=== PATIENT | female | born 1950 | race African-American/Black ===

== ENCOUNTER 2022-09-07 17:43 | Emergency (ER) | payer MEDICARE, MEDICAID ==
[~2022-09-07] VITALS: Ht 152.4 cm; Wt 64.0 kg
[2022-09-07] MEDS ORDERED: FUROSEMIDE 20MG/2ML VIAL IVP ONE (19:15)
[2022-09-07 20:04] LABS: BASOPHILS % 0.6 % (0.0-2.0); HEMATOCRIT. 25.1 % (36.0-48.0); HEMOGLOBIN. 8.1 g/dL (12.0-16.0); LYMPHOCYTES % 27.8 % (20.0-50.0); MEAN CORPUSCULAR VOLUME 87.1 fL (81.0-99.0); MEAN PLATELET VOLUME 7.1 fl (7.4-10.4); NEUTROPHILS % 56.6 % (40.0-76.0); PLATELET 172 x1000/uL (130-400); RED BLOOD CELL COUNT 2.88 mill/uL (4.2-5.4); RED CELL DISTRIBUTION WIDTH 13.6 % (11.6-14.6)
[2022-09-07 20:06] LABS: CHLORIDE 113 mEq/L (98-107)
[2022-09-07] MEDS ORDERED: FUROSEMIDE 20MG/2ML VIAL IVP NR (22:45)
[2022-09-07 23:45] VITALS: BP 145/85
[2022-09-08] MEDS ORDERED: FUROSEMIDE 20MG TABLET PO NR
[2022-09-08] MEDS ORDERED: SODIUM CHLORIDE 0.9% 1,000 ML IV ONE (00:45)
[2022-09-08] MEDS ORDERED: SODIUM POLYSTYRENE SULFONATE 15 G/60 ML BOT PO ONE (00:45)
[2022-09-08] MEDS ORDERED: DEXTROSE 50% WATER 50ML SYRINGE IV ONE (00:45)
[2022-09-08] MEDS ORDERED: INSULIN REGULAR (HUMULIN R) 300UNITS/3ML VIAL IV ONE (00:45)
[2022-09-08] MEDS ORDERED: SODIUM BICARBONATE 8.4% 1 MEQ/ML 50ML SYR IV ONE (00:45)
== END 2022-09-08 00:11 ==
LOC: ER 18:00
DX: R10.9 Unspecified abdominal pain (principal); E87.5 Hyperkalemia; E11.9 Type 2 diabetes mellitus without complications; I10 Essential (primary) hypertension; Z86.73 Personal history of transient ischemic attack (TIA), and cerebral infarction without residual deficits
CPT/HCPCS: 36415; 80053; 83690; 85025; 93005; 99284; J1940

== ENCOUNTER 2024-04-08 13:14 | Inpatient (IN) | payer MEDICARE, MEDICAID ==
[~2024-04-08] VITALS: Ht 154.9 cm; Wt 61.7 kg
[~2024-04-08 13:14] MED LIST: AMLO10TA80 PO; ASPI-1497 PO; ATOR20TA65 PO; CITR473S PO; DEXT15DR5 EACHEYE; DOCU250C14 PO; FERR325T6 PO; FOLI-43 PO; FOLI0.8T23 MT; GABA300C PO; LABE100T9 PO; SEVE800T25 PO; SODI15OR5 MT; SODI454P4 PO; TRAM50TA3 MT; XALAO EACHEYE
[2024-04-08 14:23] LABS: CHLORIDE 110 mEq/L (98-107); SODIUM 139 mEq/L (136-145)
[2024-04-08 14:24] LABS: CALCIUM 8.9 mg/dL (8.7-10.4); CARBON DIOXIDE 20 mEq/L (21-32)
[2024-04-08 14:26] LABS: PROTHROMBIN TIME 10.9 sec (9.6-11.0)
[2024-04-08 14:29] LABS: GLUCOSE 84 mg/dL (70-105)
[2024-04-08 14:30] LABS: TROPONIN I HIGH SENSITIVITY 18 ng/L (3.0-34)
[2024-04-08 14:34] LABS: BASOPHILS % 0.7 % (0.0-2.0); EOSINOPHILS % 2.6 % (0.0-5.0); HEMATOCRIT. 26.3 % (36.0-48.0); HEMOGLOBIN. 8.4 g/dL (12.0-16.0); LYMPHOCYTES % 28.6 % (20.0-50.0); MEAN CORPUSCULAR HEMOGLOBIN 28.6 pg (28.0-32.0); MEAN CORPUSCULAR HGB CONC 31.9 g/dL (31.0-37.0); MEAN CORPUSCULAR VOLUME 89.9 fL (81.0-99.0); MEAN PLATELET VOLUME 7.8 fl (7.4-10.4); MONOCYTES % 6.6 % (2.0-8.0); NEUTROPHILS % 61.5 % (40.0-76.0); PLATELET 216 x1000/uL (130-400); RED BLOOD CELL COUNT 2.92 mill/uL (4.2-5.4); RED CELL DISTRIBUTION WIDTH 14.6 % (11.6-14.6); WHITE BLOOD COUNT 6.8 x1000/uL (4.5-11.0)
[2024-04-08 14:36] LABS: POTASSIUM 7.8 mEq/L (3.5-5.1)
[2024-04-08 14:38] LABS: UREA NITROGEN BLOOD 112 mg/dL (9-23)
[2024-04-08 14:39] LABS: CREATININE 9.2 mg/dL (0.6-1.0)
[2024-04-08] MEDS ORDERED: INSULIN REGULAR (HUMULIN R) 1000UNITS/10ML VIAL IV ONE (14:45)
[2024-04-08] MEDS ORDERED: CALCIUM GLUCONATE 1GM PREMIX 50 ML IV ONE (14:45)
[2024-04-08] MEDS ORDERED: DEXTROSE 50% WATER 50ML SYRINGE IV PRN (15:00)
[2024-04-08] MEDS: FUROSEMIDE 40MG/4ML VIAL IVP ONE (15:21)
[2024-04-08] MEDS: CALCIUM GLUCONATE 3,000 MG in DEXT 5% WATER 70 ML IV NR (15:21)
[2024-04-08] MEDS: MANNITOL 12.5G (25%) VIAL 50ML IV NR (15:30)
[2024-04-08] MEDS ORDERED: DOCUSATE SODIUM 250MG CAPSULE PO PRN (15:45)
[2024-04-08] MEDS: INSULIN REGULAR (HUMULIN R) 1000UNITS/10ML VIAL IV ONE (16:00)
[2024-04-08] MEDS: DEXTROSE 50% WATER 50ML SYRINGE IV ONE (16:11)
[2024-04-08] MEDS: SODIUM BICARBONATE 8.4% 50MEQ/50ML SYR IV ONE (16:11)
[2024-04-08] MEDS: SODIUM ZIRCONIUM CYCLOSILICATE 10GM/PACKET PO ONE (16:15)
[2024-04-08 16:18] VITALS: PULSE 68; RESP 15; O2SAT 92
[2024-04-08] MEDS: ALBUTEROL (0.083%) 2.5MG/3ML NEB HHN ONE (16:18)
[2024-04-08 19:43] LABS: POTASSIUM 7.3 mEq/L (3.5-5.1)
[2024-04-08 20:12] LABS: HEPATITIS B SURFACE ANTIGEN NEGATIVE (Negative)
[2024-04-08 20:32] LABS: HEPATITIS A AB IGM NEGATIVE (Negative)
[2024-04-08 20:33] LABS: HEPATITIS B CORE AB IGM NEGATIVE (Negative); HEPATITIS C AB NON REACTIVE (Neg) (Negative)
[2024-04-08] MEDS: INSULIN REGULAR (HUMULIN R) 1000UNITS/10ML VIAL IV NR (21:29)
[2024-04-08] MEDS: SODIUM BICARBONATE 8.4% 50MEQ/50ML SYR IV NR (21:32)
[2024-04-08] MEDS: DEXTROSE 50% WATER 50ML SYRINGE IV NR (21:33)
[2024-04-08 21:52] VITALS: PULSE 74; RESP 10; O2SAT 99
[2024-04-08] MEDS: ALBUTEROL (0.5%) 2.5MG/0.5ML NEB HHN NR (21:52)
[2024-04-08] MEDS: ATORVASTATIN CALCIUM 20MG TABLET PO SCH (22:36)
[2024-04-08] MEDS: LATANOPROST 0.005% OPHTH DROPS 2.5ML EACHEYE SCH (22:48)
[2024-04-08 23:45] VITALS: BP 162/129; PULSE 79; RESP 14; TEMP 36.3624
[2024-04-08 23:58] VITALS: BP 162/129; PULSE 78; RESP 17; TEMP 36.33624; O2SAT 98
[2024-04-09] VITALS (23 sets, daily range): BP systolic 121–176; BP diastolic 50–101; PULSE 69–86; RESP 10–21; TEMP 36.55848–37.11408; O2SAT 95–99
[2024-04-09 00:49] LABS: CALCIUM 9.1 mg/dL (8.7-10.4)
[2024-04-09 01:14] LABS: POTASSIUM 6.7 mEq/L (3.5-5.1)
[2024-04-09] MEDS: ALBUTEROL (0.083%) 2.5MG/3ML NEB HHN NR ×2 (01:30→06:45)
[2024-04-09] MEDS: SODIUM BICARBONATE 8.4% 50MEQ/50ML SYR IV NR ×3 (02:23→12:30)
[2024-04-09] MEDS: INSULIN REGULAR (HUMULIN R) 1000UNITS/10ML VIAL IV NR ×4 (02:26→16:39)
[2024-04-09] MEDS: DEXTROSE 50% WATER 50ML SYRINGE IV NR ×4 (02:28→16:38)
[2024-04-09] MEDS: CLONIDINE 0.1MG TABLET PO PRN (03:19)
[2024-04-09 05:41] LABS: CHLORIDE 108 mEq/L (98-107); SODIUM 141 mEq/L (136-145)
[2024-04-09 05:42] LABS: CALCIUM 8.8 mg/dL (8.7-10.4); CARBON DIOXIDE 21 mEq/L (21-32)
[2024-04-09 05:43] LABS: BASOPHILS % 0.6 % (0.0-2.0); HEMATOCRIT. 30.5 % (36.0-48.0); HEMOGLOBIN. 9.6 g/dL (12.0-16.0); LYMPHOCYTES % 24.9 % (20.0-50.0); MEAN CORPUSCULAR HEMOGLOBIN 28.5 pg (28.0-32.0); MEAN CORPUSCULAR HGB CONC 31.5 g/dL (31.0-37.0); MEAN CORPUSCULAR VOLUME 90.4 fL (81.0-99.0); MEAN PLATELET VOLUME 7.5 fl (7.4-10.4); MONOCYTES % 8.4 % (2.0-8.0); NEUTROPHILS % 64.1 % (40.0-76.0); PLATELET 219 x1000/uL (130-400); RED BLOOD CELL COUNT 3.38 mill/uL (4.2-5.4); RED CELL DISTRIBUTION WIDTH 14.5 % (11.6-14.6); WHITE BLOOD COUNT 5.9 x1000/uL (4.5-11.0)
[2024-04-09 05:47] LABS: GLUCOSE 104 mg/dL (70-105)
[2024-04-09 05:49] LABS: ALANINE AMINOTRANSFERASE < 7 IU/L (10-49); ALBUMIN 3.5 g/dL (3.2-4.8); ASPARTATE AMINOTRANSFERASE 12 IU/L (<34)
[2024-04-09 05:50] LABS: BILIRUBIN TOTAL 0.2 mg/dL (0.1-1.0); PROTEIN TOTAL 6.4 g/dL (6.0-8.3)
[2024-04-09 06:27] LABS: BILIRUBIN DIRECT < 0.1 mg/dL (<=3.0); CREATININE 8.9 mg/dL (0.6-1.0); PHOSPHORUS 8.7 mg/dL (2.5-4.9); POTASSIUM 6.9 mEq/L (3.5-5.1); UREA NITROGEN BLOOD 103 mg/dL (9-23)
[2024-04-09] MEDS: CITRIC ACID/SODIUM CITRATE SOLN 30ML UDC PO SCH (08:57)
[2024-04-09] MEDS: AMLODIPINE 10MG TABLET PO SCH (08:58)
[2024-04-09] MEDS: FOLIC ACID/VITAMIN B COMP W-C TABLET PO SCH (08:58)
[2024-04-09] MEDS: GABAPENTIN 300MG CAPSULE PO SCH (08:58)
[2024-04-09] MEDS: SODIUM BICARBONATE 100 MEQ in DEXTROSE 5% WATER 900 ML IV SCH (10:07)
[2024-04-09 10:57] LABS: POTASSIUM 6.6 mEq/L (3.5-5.1)
[2024-04-09] MEDS: CALCIUM ACETATE 667MG CAPSULE PO SCH (12:33)
[2024-04-09] MEDS: SODIUM ZIRCONIUM CYCLOSILICATE 10GM/PACKET PO NR (12:33)
[2024-04-09] MEDS: HYDRALAZINE HCL 25MG TABLET PO SCH (13:32)
[2024-04-09 14:42] LABS: CALCIUM 9.1 mg/dL (8.7-10.4)
[2024-04-09 14:50] LABS: CREATININE 8.8 mg/dL (0.6-1.0); POTASSIUM 6.4 mEq/L (3.5-5.1)
[2024-04-09] MEDS ORDERED: PNEUMOCOCCAL 23-VAL P-SAC VAC 0.5ML IM ONE (15:00)
[2024-04-09] MEDS: CARBAMIDE PEROXIDE 6.5% OTIC SOLN 15ML RIGHT EAR NR (16:38)
[2024-04-09 17:16] LABS: POTASSIUM 6.3 mEq/L (3.5-5.1)
[2024-04-10] VITALS (12 sets, daily range): BP systolic 103–200; BP diastolic 50–173; PULSE 85–102; RESP 9–28; TEMP 36.33624–37.05852; O2SAT 97–100
[2024-04-10 08:29] LABS: BASOPHILS % 0.4 % (0.0-2.0); EOSINOPHILS % 2.9 % (0.0-5.0); HEMATOCRIT. 28.4 % (36.0-48.0); LYMPHOCYTES % 24.7 % (20.0-50.0); MEAN CORPUSCULAR HEMOGLOBIN 28.2 pg (28.0-32.0); MEAN CORPUSCULAR HGB CONC 31.9 g/dL (31.0-37.0); MEAN CORPUSCULAR VOLUME 88.3 fL (81.0-99.0); MEAN PLATELET VOLUME 7.5 fl (7.4-10.4); MONOCYTES % 7.4 % (2.0-8.0); NEUTROPHILS % 64.6 % (40.0-76.0); PLATELET 217 x1000/uL (130-400); RED BLOOD CELL COUNT 3.21 mill/uL (4.2-5.4); RED CELL DISTRIBUTION WIDTH 14.1 % (11.6-14.6); WHITE BLOOD COUNT 6.7 x1000/uL (4.5-11.0)
[2024-04-10] MEDS ORDERED: CLONIDINE 0.2MG TABLET PO PRN (08:30)
[2024-04-10 08:42] LABS: CARBON DIOXIDE 26 mEq/L (21-32); CHLORIDE 103 mEq/L (98-107); SODIUM 141 mEq/L (136-145)
[2024-04-10] MEDS ORDERED: SODIUM ZIRCONIUM CYCLOSILICATE 10GM/PACKET PO SCH (09:00)
[2024-04-10] MEDS: SODIUM ZIRCONIUM CYCLOSILICATE 10GM/PACKET PO SCH (09:13)
[2024-04-10 09:26] LABS: POTASSIUM 6.7 mEq/L (3.5-5.1)
[2024-04-10] MEDS: SODIUM BICARBONATE 8.4% 50MEQ/50ML SYR IV NR (11:17)
[2024-04-10] MEDS: DEXTROSE 50% WATER 50ML SYRINGE IV NR (11:17)
[2024-04-10] MEDS: INSULIN REGULAR (HUMULIN R) 1000UNITS/10ML VIAL IV NR (11:17)
[2024-04-10 16:58] LABS: POTASSIUM 5.9 mEq/L (3.5-5.1)
[2024-04-10] MEDS: LORAZEPAM 2MG/ML INJ IV PRN (21:19)
[2024-04-10] MEDS: HYDRALAZINE HCL 25MG TABLET PO SCH (22:00)
[2024-04-11] VITALS (12 sets, daily range): BP systolic 130–206; BP diastolic 55–133; PULSE 95–109; RESP 10–32; TEMP 36.16956–37.00296; O2SAT 97–100
[2024-04-11] MEDS: HYDRALAZINE 20MG/ML VIAL IV PRN (00:34)
[2024-04-11] MEDS: DOXAZOSIN MESYLATE 2MG TABLET PO SCH (09:44)
[2024-04-11 16:36] LABS: BASOPHILS % 0.5 % (0.0-2.0); EOSINOPHILS % 1.7 % (0.0-5.0); HEMOGLOBIN. 8.7 g/dL (12.0-16.0); LYMPHOCYTES % 21.9 % (20.0-50.0); MEAN CORPUSCULAR HEMOGLOBIN 28.5 pg (28.0-32.0); MEAN CORPUSCULAR HGB CONC 32.2 g/dL (31.0-37.0); MEAN CORPUSCULAR VOLUME 88.4 fL (81.0-99.0); MEAN PLATELET VOLUME 7.8 fl (7.4-10.4); MONOCYTES % 6.9 % (2.0-8.0); PLATELET 215 x1000/uL (130-400); RED BLOOD CELL COUNT 3.05 mill/uL (4.2-5.4); RED CELL DISTRIBUTION WIDTH 14.1 % (11.6-14.6); WHITE BLOOD COUNT 5.7 x1000/uL (4.5-11.0)
[2024-04-11 16:48] LABS: CHLORIDE 98 mEq/L (98-107); POTASSIUM 5.9 mEq/L (3.5-5.1); SODIUM 140 mEq/L (136-145)
[2024-04-11 16:49] LABS: CALCIUM 8.9 mg/dL (8.7-10.4); CARBON DIOXIDE 31 mEq/L (21-32)
[2024-04-11 16:54] LABS: GLUCOSE 215 mg/dL (70-105); UREA NITROGEN BLOOD 95 mg/dL (9-23)
[2024-04-11 17:04] LABS: CREATININE 8.3 mg/dL (0.6-1.0)
[2024-04-12] VITALS (12 sets, daily range): BP systolic 105–164; BP diastolic 49–81; PULSE 102–110; RESP 10–23; TEMP 36.44736–37.00296; O2SAT 95–100
[2024-04-12] MEDS ORDERED: ALBUTEROL (0.083%) 2.5MG/3ML NEB HHN NR (05:45)
[2024-04-12] MEDS: INSULIN REGULAR (HUMULIN R) 1000UNITS/10ML VIAL IV NR (07:11)
[2024-04-12] MEDS: DEXTROSE 50% WATER 50ML SYRINGE IV NR (07:11)
[2024-04-12] MEDS: SODIUM BICARBONATE 8.4% 50MEQ/50ML SYR IV NR (07:12)
[2024-04-12 09:20] LABS: POTASSIUM 5.1 mEq/L (3.5-5.1)
[2024-04-12 09:34] LABS: BASOPHILS % 0.3 % (0.0-2.0); EOSINOPHILS % 1.8 % (0.0-5.0); HEMATOCRIT. 24.1 % (36.0-48.0); HEMOGLOBIN. 7.8 g/dL (12.0-16.0); LYMPHOCYTES % 24.5 % (20.0-50.0); MEAN CORPUSCULAR HEMOGLOBIN 28.3 pg (28.0-32.0); MEAN CORPUSCULAR HGB CONC 32.2 g/dL (31.0-37.0); MEAN CORPUSCULAR VOLUME 87.8 fL (81.0-99.0); MEAN PLATELET VOLUME 7.5 fl (7.4-10.4); MONOCYTES % 7.6 % (2.0-8.0); NEUTROPHILS % 65.8 % (40.0-76.0); PLATELET 196 x1000/uL (130-400); RED BLOOD CELL COUNT 2.74 mill/uL (4.2-5.4)
[2024-04-12] MEDS: QUETIAPINE FUMARATE 50MG TABLET PO SCH (10:50)
[2024-04-12 11:45] LABS: CREATININE 8.4 mg/dL (0.6-1.0)
[2024-04-12] MEDS: HYDRALAZINE HCL 50MG TABLET PO SCH (14:07)
[2024-04-13] VITALS (8 sets, daily range): BP systolic 99–155; BP diastolic 48–83; PULSE 106–116; RESP 13–24; TEMP 36.6696–37.39188; O2SAT 94–100
[2024-04-13] MEDS: HYDRALAZINE HCL 25MG TABLET PO SCH (14:00)
[2024-04-13] MEDS ORDERED: AMLODIPINE 2.5MG TABLET PO SCH (21:00)
== END 2024-04-13 14:55 | DRG 640 ==
LOC: ER 13:14 → EDBEDREQ 14:33 → EDBEDREQTM 14:33 → EDBEDREQSVC 21:35 → EDBEDREQTM 21:35 → EDBEDREQ 21:35 → MICUNO 23:52 → 5EST 04-09 18:30
PROVIDERS: ADMIT Internal Medicine Nephrology; ATTEND Internal Medicine Nephrology
DX: E87.5 Hyperkalemia (principal); G93.41 Metabolic encephalopathy; J96.01 Acute respiratory failure with hypoxia; N18.6 End stage renal disease; I13.2 Hypertensive heart and chronic kidney disease with heart failure and with stage 5 chronic kidney disease, or end stage renal disease; N17.9 Acute kidney failure, unspecified; E87.20 Acidosis, unspecified; D63.1 Anemia in chronic kidney disease; Z66 Do not resuscitate; E11.22 Type 2 diabetes mellitus with diabetic chronic kidney disease; E78.5 Hyperlipidemia, unspecified; E83.39 Other disorders of phosphorus metabolism; E11.40 Type 2 diabetes mellitus with diabetic neuropathy, unspecified; I50.9 Heart failure, unspecified; Z53.29 Procedure and treatment not carried out because of patient's decision for other reasons; K21.9 Gastro-esophageal reflux disease without esophagitis; R00.1 Bradycardia, unspecified; Z86.73 Personal history of transient ischemic attack (TIA), and cerebral infarction without residual deficits; Z79.4 Long term (current) use of insulin; Z91.158 Patient's noncompliance with renal dialysis for other reason; Z79.899 Other long term (current) drug therapy; Z79.82 Long term (current) use of aspirin
CPT/HCPCS: 36415; 71045; 80048; 80051; 80076; 82962; 83735; 83880; 84100; 84132; 84443; 84484; 85025; 86705; 86709; 87340; 93005; 94640; 99285; A6261; J0360; J0610; J1815; J1940; J2060; J2150; J3490; J7060; J7070